=== PATIENT | male | born 1985 | race Caucasian/White ===

== ENCOUNTER 2022-03-30 08:40 | Outpatient (CLI) | payer MEDICAID, SELFPAY ==
--- NOTE | 2022-03-30 09:00 | FL_ITS ---
WS: [id number] FL barium swallow modifd 15795 REASON FOR EXAM: Difficulty swallowing. FLUOROSCOPY TIME: 3.2 # OF SPOT FILMS: 20 FINDINGS: Patient was evaluated from the oropharynx to the fundus of the stomach. The swallowing of barium of varying consistencies was supervised by the speech therapy department. Vi acosta fluoroscopy of the swallowing will be analyzed and a detailed report rendered by the speech thera py department. No aspiration observed. During the swallowing ingestion of a barium tablet demonstrated a relative obstruction in the distal esophagus which was further evaluated with swallowing thin barium in the upright position. There is a small hiatal hernia. At the superior aspect of the hiatal hernia there is a stricture which has a ma ximum diameter of 7 to 8 mm at which point the barium tablet was lodged. The esophagus is mildly dila cata above this point but demonstrates relatively normal peristalsis. There is free flow of liquid bar ium through this stricture. FL/FL barium swallow modifd 73997 IMPRESSION: Modified barium swallow as above. Distal esophageal stricture as above.
== END 2022-03-30 08:41 | disposition home or self-care (01) ==
LOC: RAD 08:42
PROVIDERS: Visit Provider Otolaryngology
DX: R13.10 Dysphagia, unspecified (principal); K22.2 Esophageal obstruction
CPT/HCPCS: 74230; 92611

== ENCOUNTER 2022-04-13 06:19 | Day surgery (SDC) | payer MEDICAID, SELFPAY ==
[2022-04-10 13:58] VITALS: BMI 30.4
[2022-04-13 06:41] VITALS: BP 168/100; PULSE 139; RESP 18; TEMP 36.9; O2SAT 98
[2022-04-13] MEDS: sodium chloride 0.9% 1,000 ML 30 ML IV ×2 (06:51→09:03)
--- NOTE | 2022-04-13 07:45 | ANES.PREANE2 ---
Pre-Anesthetic Assessment Height/Weight: Height 1.73 m Weight 90.718 kg Temp Pulse Resp BP Pulse Ox 98.5 F 139 H 18 168/100 98 04/13/22 06:41 04/13/22 06:41 04/13/22 06:41 04/13/22 06:41 04/13/22 06:41 Preop Diagnosis: esophageal stricture Operation Date: 04/13/22 08:15 Proposed Procedures p EGD Dilation W/ Balloon 30439/R13.10(Not Applicable) - Joss Azul DO Familial anesthetic complications: None Was Beta Josep taken within 24 hours: N/A Was Clonidine taken within 24 hours: N/A Last intake: Intake Last Liquid Date 04/12/22 Last Liquid Time 18:00 Last Solid Date 04/12/22 Last Solid Time 10:50 Social No alcohol and No tobacco Exam alert, oriented x 3, clear to auscultation bilaterally and regular rate & rhythm Airway Submandibular: within normal limits Cervical ROM: within normal limits Mallampati: Class II Dentition: full History/ROS No significant complaints Pulmonary None reported CV/HEM None reported None reported Hepatic None reported GI Gastroesophageal Reflux Disease and Hiatal Hernia Metabolic None reported Musc/skel None reported Neuropsych Sensorineural hearing loss Anesthetic Plan ASA status: 2 Anesthesia: Anesthesia Evaluation and General Other: We discussed risk and benefits of general anesthesia including PONV, sore throat (sometimes severe), corneal abrasion, positioning and peripheral nerve injuries, life threatening allergic reaction, post operative ICU admission requiring prolonged intubation, stroke, heart attack, , and rare incidences of recall. Patient consents to proceed with general anesthesia. Risk of > 500 ml blood loss (7ml/kg in children): No Medications/Allergies Home Medications Medication Instructions Recorded Confirmed Last Taken Type diphenhydramine HCl 25 mg capsule 25 mg PO TID PRN 04/03/22 04/13/22 Unknown History (Benadryl) Allergies Allergy/AdvReac Type Severity Reaction Status Date / Time No Known Allergies Allergy Unverified 04/13/22 06:37 Current Medications Generic Name Dose Route Start Last Admin Trade Name Freq PRN Reason Stop Dose Admin Sodium Chloride 1,000 mls @ 30 mls/hr 04/13/22 06:30 04/13/22 06:51 Sodium Chloride 0.9% IV 04/14/22 06:29 30 mls/hr .Q24H GELY Administration PFSH Anesthesia Medical History Hearing Loss History of ear infections as a child Family History Other CAD (coronary artery disease) Cancer Diabetes Hypertension Social History Smoking and tobacco status: never smoked Data Anesthesia Cardiac Studies: No Data to Display
--- NOTE | 2022-04-13 08:51 | W.PM.OPSUD ---
Surgery/Procedure H&P Update DATE OF PROCEDURE: April 13, 2022 DATE H&P PERFORMED: 04/04/22 CHANGES TO PREVIOUS DOCUMENTATION: NONE PREOP DIAGNOSIS: esophageal stricture PLANNED PROCEDURE: Operation Date: 04/13/22 08:15 Proposed Procedures p EGD Dilation W/ Balloon 60495/R13.10(Not Applicable) - Joss Azul DO
[2022-04-13 09:29] VITALS: BP 91/58; PULSE 111; RESP 17; O2SAT 97
[2022-04-13 09:40] VITALS: BP 92/57; PULSE 113; RESP 18; O2SAT 95
[2022-04-13 09:55] VITALS: BP 112/77; PULSE 110; RESP 18; O2SAT 95
[2022-04-13 10:07] VITALS: BP 111/67; PULSE 109; RESP 18; O2SAT 95
--- NOTE | 2022-04-13 14:45 | ANE.PACU2 ---
Inpatient post-anesthesia follow up: Airway intact: Yes Vital signs: Temperature 98.5 F Pulse Rate 109 Respiratory Rate 18 Blood Pressure 111/67 Pulse Oximetry 95 Oxygen Delivery Me thod Room Air Oxygen Flow Rate 9 Fraction of Inspir ed Oxygen Hydration adequate: Yes Nausea and vomiting: No Pain level: 1 Mental status: Baseline
== END 2022-04-13 10:30 | disposition home or self-care (01) ==
PROVIDERS: Visit Provider Surgery
DX: R13.10 Dysphagia, unspecified (principal); K21.9 Gastro-esophageal reflux disease without esophagitis; K44.9 Diaphragmatic hernia without obstruction or gangrene; K29.70 Gastritis, unspecified, without bleeding
CPT/HCPCS: 43239; 43249; 88305; 88342; J2704; J3010; J7030

== ENCOUNTER 2023-01-04 05:24 | Day surgery (SDC) | payer BC, MEDICAID, SELFPAY ==
[2023-01-01 12:19] VITALS: BMI 30.4
[2023-01-04] VITALS (7 sets, daily range): BP systolic 93–164; BP diastolic 58–104; PULSE 63–116; RESP 16–18; TEMP 36.1–36.6; O2SAT 94–100
[2023-01-04] MEDS: sodium chloride 0.9% 1,000 ML 30 ML IV (06:12)
--- NOTE | 2023-01-04 06:13 | P.ANESASSM_ITS ---
Pre-Anesthetic Assessment Height/Weight: Height 1.73 m Weight 90.718 kg Temp Pulse Resp BP Pulse Ox O2 Del Method 98 F 116 H 18 164/104 98 01/04/23 06:03 01/04/23 06:03 01/04/23 06:03 01/04/23 06:03 01/04/23 06:03 01/04/23 06:03 Preop Diagnosis: GI bleed/diarrhea Operation Date: 01/04/23 07:00 Proposed Procedures p Colonoscopy 63057,K92.2,R19.7(Not Applicable) - Joss Azul DO Familial anesthetic complications: None Was Beta Josep taken within 24 hours: N/A Was Clonidine taken within 24 hours: N/A Last intake: Intake Last Liquid Date 01/03/23 Last Liquid Time 23:00 Last Solid Date 01/02/23 Last Solid Time 23:59 Social No alcohol and No tobacco Exam alert, oriented x 3, clear to auscultation bilaterally and regular rate & rhythm Airway Submandibular: within normal limits Cervical ROM: within normal limits Mallampati: Class II Dentition: full History/ROS No significant history except as noted and No significant complaints Pulmonary None reported CV/HEM None reported None reported Hepatic None reported GI Gastroesophageal Reflux Disease (None this am) and Hiatal Hernia Metabolic None reported Musc/skel Lower Back Pain Neuropsych Anxiety Bilateral hearing loss Anesthetic Plan ASA status: 2 Anesthesia: General and MAC Risk of > 500 ml blood loss (7ml/kg in children): No Medications/Allergies Home Medications Medication Instructions Recorded Confirmed Last Taken Type diphenhydramine HCl 25 mg capsule 25 mg PO TID PRN Allergy Symptoms 04/03/22 01/01/23 01/02/23 History (Benadryl) omeprazole 40 mg capsule,delayed 40 mg PO DAILY #45 caps 04/13/22 01/01/23 01/02/23 Rx release Allergies Allergy/AdvReac Type Severity Reaction Status Date / Time No Known Allergies Allergy Verified 01/01/23 12:14 [facility] Anesthesia Medical History GERD (gastroesophageal reflux disease) Hearing Loss History of ear infections as a child Family History Other CAD (coronary artery disease) Cancer Diabetes Hypertension Social History Smoking and tobacco status: never smoked Data Anesthesia Cardiac Studies: No Data to Display
--- NOTE | 2023-01-04 06:22 | P.HP_ITS ---
Providers/Chief Complaint Chief Complaint: Gastrointestinal hemorrhage, unspecified History of Present Illness Contreras Tilley is a 37 year old male here for colonoscopy Medications/Allergies Home Medications Medication Instructions Recorded Confirmed Last Taken Type diphenhydramine HCl 25 mg capsule 25 mg PO TID PRN Allergy Symptoms 04/03/22 01/01/23 01/02/23 History (Benadryl) omeprazole 40 mg capsule,delayed 40 mg PO DAILY #45 caps 04/13/22 01/01/23 01/02/23 Rx release Allergies Allergy/AdvReac Type Severity Reaction Status Date / Time No Known Allergies Allergy Verified 01/01/23 12:14 PFSH Acute PFSH: Medical History GERD (gastroesophageal reflux disease) Hearing Loss History of ear infections as a child Family History Other CAD (coronary artery disease) Cancer Diabetes Hypertension Social History Smoking and tobacco status: never smoked Vitals/I&O/Wt Last Vital Signs Temp 98 F 01/04/23 06:03 Pulse 116 H 01/04/23 06:03 Resp 18 01/04/23 06:03 BP 164/104 01/04/23 06:03 Pulse Ox 98 01/04/23 06:03 O2 Del Method 01/04/23 06:03 A&P Assessment and plan (1) Diarrhea: (2) GI bleeding: Plan Colonoscopy with random biopsies and stool studies Attestations Medical Necessity Statement*: Home Coding Level of Care Code Acute Code for [facility] Diagnoses Diarrhea R19.7 GI bleeding K92.2
--- NOTE | 2023-01-04 13:26 | ANE.PACU2 ---
Inpatient post-anesthesia follow up: Airway intact: Yes Vital signs: Temperature 97 F Pulse Rate 85 Respiratory Rate 18 Blood Pressure 126/85 Pulse Oximetry 97 Oxygen Delivery Me thod Room Air Oxygen Flow Rate 2 Fraction of Inspir ed Oxygen Hydration adequate: Yes Nausea and vomiting: No Pain level: 2 Mental status: Baseline
== END 2023-01-04 08:42 | disposition home or self-care (01) ==
PROVIDERS: Visit Provider Surgery
PROC: 0DJD8ZZ Inspection of Lower Intestinal Tract, Via Natural or Artificial Opening Endoscopic (ICD-10-PCS; CPT 45378; principal; 2023-01-04 07:00)
DX: K57.30 Diverticulosis of large intestine without perforation or abscess without bleeding (principal); R19.7 Diarrhea, unspecified; K21.9 Gastro-esophageal reflux disease without esophagitis
CPT/HCPCS: 45380; 82274; 83630; 87493; 87506; 88305; J2250; J2704; J7030

== ENCOUNTER 2024-09-27 13:00 | Emergency (ER) | payer BC, MEDICAID, SELFPAY ==
[2024-09-27 13:16] VITALS: BP 114/71; PULSE 133; RESP 16; TEMP 37.8; O2SAT 100; BMI 23.6
[2024-09-27 13:49] VITALS: O2SAT 100
[2024-09-27 14:23] LABS: Influenza A NEGATIVE (Negative); Influenza B NEGATIVE (Negative); Respiratory Syncytial Virus Ce NEGATIVE (Negative)
[2024-09-27 14:49] LABS: Covid PCR Positive (Negative)
--- NOTE | 2024-09-27 15:12 | W.ED.COVID ---
HPI - COVID General: Chief Complaint: COVID symptoms Stated Complaint: covid symptoms Time Seen by Provider: 09/27/24 13:35 Source: patient and family Mode of arrival: ambulatory Limitations: no limitations Triage information: Exposure to COVID + person last 14 days History of Present Illness: Patient is here with other family members who have been exposed to the [place] of the family who is positive COVID 2 days ago. Patient is experiencing fevers chills and bodyaches but has been able to eat and drink. No difficulty with breathing or shortness of breath etc. Previously immunized against COVID as well as influenza. MD complaint: reported COVID exposure and has COVID symptoms Prior covid testing: no COVID 19 common symptoms: positive fever(s), chills, non-productive cough and body aches; negative productive cough, dyspnea, headache(s), throat pain, nasal congestion, nausea, vomiting or diarrhea COVID Results: Coronavirus (PCR) Positive (Negative) A 09/27/24 13:35 Related Data Home Medications Medication Instructions Recorded Confirmed diphenhydramine HCl 25 mg capsule 25 mg PO TID PRN Allergy Symptoms 04/03/22 04/30/23 (Benadryl) Previous Rx's Medication Instructions Recorded omeprazole 40 mg capsule,delayed 40 mg PO DAILY #45 caps 04/13/22 release Allergies Allergy/AdvReac Type Severity Reaction Status Date / Time No Known Allergies Allergy Verified 09/27/24 13:16 Review of Systems Const: Reports: fever(s), chills and body aches; Denies: change in appetite ENMT: Denies: throat pain, odynophagia, nasal discharge or nasal congestion Resp: Reports: non-productive cough; Denies: dyspnea, productive cough, wheezing or stridor GI: Denies: abdominal pain, nausea, vomiting or diarrhea : Denies: flank pain, difficulty urinating or dysuria Musc: Denies: neck pain, back pain or extremity pain Skin/Breast: Denies: rash Neuro: Denies: headache(s) PFSH ED PFSH: Medical History GI bleeding GERD (gastroesophageal reflux disease) Hearing Loss History of ear infections as a child Family History Other CAD (coronary artery disease) Cancer Diabetes Hypertension Social History Smoking and tobacco/nicotine status: never used tobacco/nicotine Physical Exam Narrative: EXAM NARRATIVE: He is cooperative and appears to be in no acute distress. Appears to be healthy. Const: COMMON NORMALS: no acute distress, average body habitus, healthy appearing and alert GENERAL APPEARANCE: cooperative HENMT: COMMON NORMALS: normocephalic, Normal nasal mucous membranes and turbinates present, moist oral mucous membranes and oropharynx normal HEAD & SCALP: normocephalic NOSE: Normal nasal mucous membranes and turbinates present Eye: COMMON NORMALS: Equal, round and reactive pupils present, EOMs intact bilaterally and conjunctivae normal CONJUNCTIVA: Yes conjunctivae normal PUPIL: Yes Equal, round and reactive pupils present Neck/C-Spine: COMMON NORMALS: full ROM, Thyroid normal and No carotid bruits THYROID: Thyroid normal Chest: COMMONS NORMALS: normal inspection of the chest Resp: COMMON NORMALS: normal respiratory effort, No use of accessory muscles and clear to auscultation bilaterally AUSCULTATION: clear to auscultation bilaterally Cardio: COMMON NORMALS: regular rate, regular rhythm, No murmurs present (Cardio) and Peripheral pulses 2+ throughout RATE: regular rate RHYTHM: regular rhythm PERIPHERAL PULSES: Peripheral pulses 2+ throughout GI: COMMON NORMALS: Normal to inspection, nondistended, normoactive bowel sounds present and Soft to palpation PALPATION: Yes Soft to palpation Back/Pelvis: COMMON NORMALS: thoracic and lumbar spine normal to inspection and thoraco-lumbar ROM normal Extremity: COMMON NORMALS: normal to inspection, full ROM and capillary refill normal Neuro: COMMON NORMALS: moves all extremities, no focal motor deficits and no sensory deficits noted SENSORIUM/ORIENTATION: Yes alert Skin: COMMON NORMALS: no rashes or lesions noted GENERAL SKIN EXAM: no rashes or lesions noted Course Vital Signs: Vital signs: Vital Signs Temperature 100.1 F H 09/27/24 13:16 Pulse Rate 133 H 09/27/24 13:16 Respiratory Rate 16 09/27/24 13:16 Blood Pressure 114/71 09/27/24 13:16 Pulse Oximetry 100 09/27/24 13:49 Oxygen Delivery Me thod Room Air 09/27/24 13:49 MDM - COVID Medical Decision Making Patient's presented with other family members as noted in the history of present illness. Differential predominantly was likely viral etiology as her current presentation with COVID-19 being the most likely. Laboratories were obtained which revealed to be COVID-19 positive. Clinically stable without any evidence of hypoxia or any other concerning clinical findings and suitable for outpatient management. Lab Data I reviewed the patient's lab results. Laboratory Results Coronavirus (PCR) Positive (Negative) A 09/27/24 13:35 Influenza A (PCR) Negative (Negative) 09/27/24 13:35 Influenza Type B (PCR) Negative (Negative) 09/27/24 13:35 RSV (PCR) Negative (Negative) 09/27/24 13:35 Coronavirus (PCR) Positive (Negative) A 09/27/24 13:35 No radiology studies performed this visit Discharge Plan Discharge Patient Disposition: Home Clinical Impression: COVID-19 Condition: Stable Prescriptions: No Action diphenhydramine HCl [Benadryl] 25 mg capsule 25 mg PO TID PRN (Reason: Allergy Symptoms) omeprazole 40 mg capsule,delayed release(DR/EC) 40 mg PO DAILY Qty: 45 0RF Discharge Orders: Discharge ED (Routine); Ordered 09/27/24 Ordered By: Len Shukla Discharge Diet: Advance as tolerated and Usual diet Discharge Activity: Increase activity as tolerated Patient Instructions: Opioid Safety, Pain Management Activity Restrictions/Additional Instructions: As we discussed expected course of COVID-19 is anywhere from 3 to 7 days. You should make sure you are well-hydrated and try to eat and maintain a caloric intake. You may use ibuprofen or acetaminophen for body aches or fevers. If you develop difficulty breathing, inability eat or drink or other worsening or concerning symptoms you are welcome to return to the emergency department. You should wear a mask if you have to go out into public. Coding Level of Care Code ED Senior Quality Methods Specialist for Rad[facility]on
[2024-09-27 15:31] VITALS: BP 118/69; PULSE 111; RESP 16; O2SAT 99
== END 2024-09-27 15:25 | disposition home or self-care (01) ==
PROVIDERS: Emergency Provider Emergency Medicine
DX: U07.1 COVID-19 (principal); Z11.52 Encounter for screening for COVID-19
CPT/HCPCS: 0241U; 99283